=== PATIENT | female | born 1960 | race Two or more races ===

== ENCOUNTER → 2024-07-06 | Outpatient (CLI) | payer BC, SELFPAY ==
[2024-07-06 10:27] LABS: Basophils # (Auto) 0.1 Thou/mm3 (0.0-0.2); Basophils % (Auto) 1 % (0-2.5); Eosinophils # (Auto) 0.4 Thou/mm3 (0.0-0.5); Eosinophils % (Auto) 8 % (0-10); Hematocrit 36.5 % (36.0-46.0); Immature Granulocytes % (Auto) 0 % (0-0); Immature Granulocytes Auto 0.02 Thou/mm3 (0.00-0.00); Lymphocytes # (Auto) 1.9 Thou/mm3 (1.0-4.8); Lymphocytes % (Auto) 41 % (10-50); Mean Corpuscular HGB Conc 32.9 g/dl (31.0-37.0); Mean Corpuscular Hemoglobin 28.7 pg (25.0-35.0); Mean Corpuscular Volume 87 fL (80-100); Monocytes # (Auto) 0.4 Thou/mm3 (0.0-0.8); Monocytes % (Auto) 8 % (0-12); Neutrophils % (Auto) 42 % (37-80); Nucleated Red Blood Cell % 0 /100 WBC (0); Platelet Count 290 Thou/mm3 (140-440); RDW Standard Deviation 44.6 fL (36.4-46.3); Red Blood Count 4.18 Miln/mm3 (4.00-5.20); White Blood Count 4.7 Thou/mm3 (3.6-11.0)
[2024-07-06 10:39] LABS: Alanine Aminotransferase 16 U/L (10-49); Albumin, Serum 4.2 gm/dL (3.4-4.8); Albumin/Globulin Ratio 1.5 (1.2-2.2); Alkaline Phosphatase 111 U/L (46-116); Anion Gap 6 (7-16); Aspartate Amino Transferase 13 U/L (0-34); BUN/Creatinine Ratio 28 Ratio (12-20); Bilirubin,Total 0.5 mg/dL (0.3-1.2); Blood Urea Nitrogen 17 mg/dL (9-23); Calcium 9.7 mg/dL (8.3-10.6); Calcium (Corrected) 9.7 mg/dL (8.5-10.1); Carbon Dioxide 29.3 mMol/L (20.0-31.0); Cardiac Risk Estimate 2.3 RATIO (3.7-5.6); Chloride 105 mMol/L (98-107); Cholesterol 176 mg/dL (132-200); Creatinine (Component) 0.6 mg/dL (0.6-1.3); Globulin 2.8 gm/dL (2.3-3.5); Glucose 97 mg/dL (74-106); HDL Cholesterol 75 mg/dL (40-60); LDL Cholesterol,Calculated 87 mg/dL (0-130); Osmolality,Calculated 280 (275-295); Potassium 4.4 mMol/L (3.4-5.1); Sodium 140 mMol/L (136-145); Triglycerides 68 mg/dL (30-150); eGFR > 60 See Note
[2024-07-06 10:50] LABS: Glucose Estimated Average 114 mg/dL (80-131); Hemoglobin A1C 5.6 % Hgb (4.8-6.0)
== END | disposition home or self-care (01) ==
PROVIDERS: PCP Family Medicine; Referring Provider Nurse Practitioner Family; Visit Provider Nurse Practitioner Family
DX: I10 Essential (primary) hypertension (principal); Z79.899 Other long term (current) drug therapy
CPT/HCPCS: 36415; 80053; 80061; 83036; 85025

== ENCOUNTER → 2024-12-28 | Outpatient (CLI) | payer BC, SELFPAY ==
--- NOTE | 2024-12-28 10:30 | XR_ITS ---
Examination: Screening digital mammography, bilateral Computer aided detection 3-D breast Tomosynthesis, bilateral Date and time of exam: December 28, 2024 0958 hours Compared to mammograms dating to January 14, 2019 Indication: Screening Technique: Nonmagnified MLO, CC views of the breasts to been obtained, reconstructed from 3-D Tomosynthesis images. R2 computer aided detection program utilized for evaluation of suspicious masses and/or abnormal calcifications. 3-D Tomosynthesis images obtained. Findings: Scattered areas of fibroglandular density. Benign calcifications. No interval suspicious masses Impression: BI-RADS category II: Benign Findings. Recommend 1 year follow-up mammogram.
== END | disposition home or self-care (01) ==
LOC: CDIM 09:30
PROVIDERS: Referring Provider Nurse Practitioner Family; Visit Provider Nurse Practitioner Family
DX: Z12.31 Encounter for screening mammogram for malignant neoplasm of breast (principal); R92.323 Mammographic fibroglandular density, bilateral breasts; R92.1 Mammographic calcification found on diagnostic imaging of breast
CPT/HCPCS: 77063; 77067

== ENCOUNTER 2024-12-31 07:50 | Day surgery (SDC) | payer BC, SELFPAY ==
--- NOTE | 2024-12-30 06:26 | EKG_ITS ---
[facility] Test Date: 2024-12-30 Pat Name: MARK REY Department: Room: - Gender: Female Exhibition Specialist: AARON : 1960 Requested By: Finesse Nguyen Order Number: [id number] Reading MD: Finesse Nguyen Measurements Intervals [place] Rate: 66 P: 58 NM: 177 QRS: -1 QRSD: 99 T: 26 QT: 381 QTc: 401 Interpretive Statements SINUS RHYTHM LOW QRS VOLTAGE IN PRECORDIAL LEADS [QRS DEFLECTION < 1.0 mV IN CHEST LEADS] MODERATE T-WAVE ABNORMALITY, CONSIDER ANTERIOR ISCHEMIA [-0.1+ mV T WAVE IN V3/V4] No previous ECG available for comparison /store/[email or web address]/[id number].pdf
[2024-12-30 08:17] VITALS: BMI 28.9
[2024-12-30 09:58] LABS: Basophils % (Auto) 1 % (0-2.5); Eosinophils # (Auto) 0.4 Thou/mm3 (0.0-0.5); Eosinophils % (Auto) 9 % (0-10); Hematocrit 34.8 % (36.0-46.0); Hemoglobin 11.6 g/dL (12.0-16.0); Immature Granulocytes % (Auto) 0 % (0-0); Immature Granulocytes Auto 0.01 Thou/mm3 (0.00-0.00); Lymphocytes # (Auto) 1.4 Thou/mm3 (1.0-4.8); Lymphocytes % (Auto) 28 % (10-50); Mean Corpuscular HGB Conc 33.3 g/dl (31.0-37.0); Mean Corpuscular Hemoglobin 29.1 pg (25.0-35.0); Mean Corpuscular Volume 87 fL (80-100); Monocytes # (Auto) 0.3 Thou/mm3 (0.0-0.8); Monocytes % (Auto) 5 % (0-12); Neutrophils # (Auto) 2.8 Thou/mm3 (1.8-7.7); Neutrophils % (Auto) 57 % (37-80); Nucleated Red Blood Cell % 0 /100 WBC (0); Platelet Count 267 Thou/mm3 (140-440); RDW Standard Deviation 44.8 fL (36.4-46.3); Red Blood Count 3.98 Miln/mm3 (4.00-5.20); White Blood Count 4.9 Thou/mm3 (3.6-11.0)
[2024-12-30 10:02] LABS: Alanine Aminotransferase 13 U/L (10-49); Albumin, Serum 4.2 gm/dL (3.4-4.8); Albumin/Globulin Ratio 1.4 (1.2-2.2); Alkaline Phosphatase 105 U/L (46-116); Anion Gap 11 (7-16); Aspartate Amino Transferase 16 U/L (0-34); BUN/Creatinine Ratio 30 Ratio (12-20); Bilirubin,Total 0.4 mg/dL (0.3-1.2); Blood Urea Nitrogen 18 mg/dL (9-23); Calcium 8.8 mg/dL (8.3-10.6); Calcium (Corrected) 8.8 mg/dL (8.5-10.1); Carbon Dioxide 26.2 mMol/L (20.0-31.0); Chloride 107 mMol/L (98-107); Creatinine (Component) 0.6 mg/dL (0.6-1.3); Estimated Creatinine Clearance 85.5 mL/min (>60); Globulin 2.9 gm/dL (2.3-3.5); Glucose 110 mg/dL (74-106); Osmolality,Calculated 289 (275-295); Potassium 3.9 mMol/L (3.4-5.1); Sodium 144 mMol/L (136-145); Total Protein 7.1 gm/dL (5.7-8.2); eGFR > 60 See Note
--- NOTE | 2024-12-30 14:09 | SUR.PREOP ---
Pt notified to come in at 0800 tomorrow for surgery.
[2024-12-31] VITALS (8 sets, daily range): BP systolic 108–142; BP diastolic 59–75; PULSE 68–81; RESP 12–18; TEMP 36.2–36.7; O2SAT 95–98; BMI 32.9
--- NOTE | 2024-12-31 10:37 | ESOP_ITS ---
Date of Procedure 12/31/24 Pre Op Diagnosis Incarcerated bilateral femoral hernias Post Op Diagnosis Incarcerated bilateral femoral hernias Procedure Repair of bilateral incarcerated femoral hernias with mesh plug Findings Incarcerated bilateral femoral hernias. Omentum was incarcerated on the left side, small bowel incarcerated on the right side Procedure Description Patient brought into the operating room in supine position. After administration of general tracheal anesthesia, patient's bilateral groins were prepped and draped in standard surgical manner. The procedure started on the patient's left side. After administration of local anesthesia an approximately 6 cm incision was made in the left inguinal crease and dissection was deepened into soft tissue. Sandra's fascia was divided. Patient was noted to have large hernia sac the sac was circumferentially dissected out surrounding tissue. The defect was inferior to the inguinal ligament. The sac was opened and the contents were noted to be omentum. I was unable to reduce the entire omentum. Partial omentectomy was performed and the remainder of the omentum was reduced. A large Bard mesh plug was used to cover the defect. The mesh plug was placed through the defect and secured circumferentially with 2-0 Prolene. It was secured medially into the pubic tubercle, superiorly into the inguinal ligament and inferiorly into the Manuel's ligament. Hemostasis is adequate and satisfactory. Sandra's fascia reapproximated with interrupted sutures using 2-0 Vicryl and incision was closed with 4-0 Monocryl in subcuticular fashion. Dermabond and pressure dressings applied. I then turned my attention to patient's right side. Similarly after administration of local anesthesia 16 to be an incision was made and dissection was deepened soft tissue. Sandra's fascia was divided. The hernia sac was identified and circumferentially dissected out surrounding tissue. The sac was opened and the contents were small bowel that were reduced. The defect was inferior to the inguinal ligament. A mesh plug was used to cover the defect and secured similarly to the 1 on the left side. Sandra's fascia closed with interrupted sutures using 2-0 Vicryl. Incision was closed with 4 Monocryl in subcuticular fashion. Dermabond and pressure dressings applied. Patient tolerated the procedure well. She was extubated, breathing spontaneously without difficulty and was transferred to postanesthesia care in stable condition. Instruments, needles and sponge counts were reported to be correct x 2. Anesthesia GETA and local Pathology / specimen Other (Left femoral hernia sac and contents) Estimated Blood Loss 10 Condition Stable Disposition PACU Surgeon Finesse Nguyen MD Surgical Staff Operation Date: 12/31/24 10:15 Case Staff BUSINESS PERFORMANCE ANALYST: Robbie Doan RN First Assistant: Trinidad Acharya
--- NOTE | 2024-12-31 10:48 | SUR.PHASEI ---
pt received from OR in recovery bay 5. pt asleep but responds to voice, breathing unlabored on oxymask 6l. v/s stable. pt dressing to lower abd dermabond x2 cdi. report received from Carlos HONEYCUTT and Riri CARVAJAL.
--- NOTE | 2024-12-31 12:02 | SUR.PHASEII ---
pt awake and alert, breathing unlabored on room air. v/s stable. pt dressing to lower abd cdi, abd binder in place. pt able to ambulate to wheelchair with steady gait. d/c instructions given with son Sandeep in room using home restoration service cleaner Rhonda [email or web address], all questions answered. pt d/c via wheelchair with all belongings.
== END 2024-12-31 12:02 | disposition home or self-care (01) ==
PROVIDERS: Anesthesiology; PCP Nurse Practitioner Family; Referring Provider Surgery; Visit Provider Surgery
PROC: (CPT 49553; principal; 2024-12-31 10:00)
DX: K41.20 Bilateral femoral hernia, without obstruction or gangrene, not specified as recurrent (principal); Z01.810 Encounter for preprocedural cardiovascular examination
CPT/HCPCS: 49553; 36415; 80053; 85025; 93005; A4217; A4649; C1781; J0131; J0690; J1171; J1885; J2250; J2704; J3010; J3490; A9270

== ENCOUNTER → 2025-05-03 | Outpatient (CLI) | payer BC, SELFPAY ==
--- NOTE | 2025-05-03 12:00 | XR_ITS ---
Examination: Abdomen sonogram, Limited Date and time of exam: May 03, 2025 1125 hours INDICATIONS: Right groin pain beginning 4 months ago, post hernia repair Technique: Real-time baird scale transabdominal sonographic images of the upper abdomen obtained. Findings: Fluid at the area concern in the right groin 2.5 x 0.3 x 1.3 cm Multiple nonpathologic lymph nodes IMPRESSION: Findings most consistent with small hematoma in the right groin
== END | disposition home or self-care (01) ==
LOC: CDIM 11:08
PROVIDERS: PCP Nurse Practitioner Family; Referring Provider Nurse Practitioner Family; Visit Provider Nurse Practitioner Family
DX: G89.18 Other acute postprocedural pain (principal)
CPT/HCPCS: 76705